=== PATIENT | male | born 1990 | race Caucasian/White ===

== ENCOUNTER 2017-05-06 12:34 | Emergency (ER) | payer SELFPAY ==
[2017-05-06] MEDS ORDERED: Lidocaine 1% PF 5 ML VIAL ONE (14:06)
[2017-05-06] MEDS ORDERED: Cephalexin 250 MG CAP ONE (14:43)
[2017-05-06] MEDS ORDERED: Ibuprofen 800 MG TAB ONE (14:43)
[2017-05-06] MEDS ORDERED: Sulfameth/Trimethoprim DS 800-160mg TAB ONE (14:43)
== END 2017-05-06 15:16 | disposition home or self-care (01) ==
LOC: ERS 12:34
DX: L02.414 Cutaneous abscess of left upper limb (principal); F17.210 Nicotine dependence, cigarettes, uncomplicated
CPT/HCPCS: 99282; J2001

== ENCOUNTER 2017-05-08 02:07 | Emergency (ER) | payer SELFPAY | END 2017-05-08 02:26 | disposition home or self-care (01) | LOC: ERS 02:07 | DX: Z48.817 Encounter for surgical aftercare following surgery on the skin and subcutaneous tissue (principal); Z48.01 Encounter for change or removal of surgical wound dressing | CPT/HCPCS: 99282 ==

== ENCOUNTER 2017-05-10 03:43 | Emergency (ER) | payer SELFPAY | END 2017-05-10 04:10 | disposition home or self-care (01) | LOC: ERS 03:43 | DX: Z48.817 Encounter for surgical aftercare following surgery on the skin and subcutaneous tissue (principal); F17.210 Nicotine dependence, cigarettes, uncomplicated | CPT/HCPCS: 99282 ==

== ENCOUNTER 2017-05-12 02:58 | Emergency (ER) | payer SELFPAY ==
[2017-05-12] MEDS ORDERED: Bacitracin Zinc 1 Packet ONE (03:56)
== END 2017-05-12 04:17 | disposition home or self-care (01) ==
LOC: ERS 02:58
DX: Z48.817 Encounter for surgical aftercare following surgery on the skin and subcutaneous tissue (principal); Z48.01 Encounter for change or removal of surgical wound dressing; F17.210 Nicotine dependence, cigarettes, uncomplicated
CPT/HCPCS: 99282

== ENCOUNTER 2017-08-07 02:47 | Emergency (ER) | payer SELFPAY | END 2017-08-07 03:12 | disposition left against medical advice (07) | LOC: ERS 02:47 | DX: Z53.21 Procedure and treatment not carried out due to patient leaving prior to being seen by health care provider (principal) ==